=== PATIENT | male | born 1995 | race Two or more races ===

== ENCOUNTER 2021-07-02 20:14 | Emergency (ER) | payer MEDICAID ==
[~2021-07-02] VITALS: Ht 182.9 cm; Wt 83.9 kg
[2021-07-02 20:27] VITALS: BP 116/69
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
[2021-07-02 20:55] LABS: BILIRUBIN,URINE NEGATIVE (NEGATIVE); COLOR,URINE YELLOW (YELLOW); LEUKOCYTE ESTERASE ,URINE NEGATIVE (NEGATIVE); NITRITE, URINE NEGATIVE (NEGATIVE); UGLUCOSE NEGATIVE (NEGATIVE); UROBILINOGEN,URINE 0.2 EU/dL (0.2)
[2021-07-02 20:58] LABS: PROTEIN,URINE NEGATIVE (NEGATIVE)
--- NOTE | 2021-07-02 21:39 | NUR ---
us at bed side
== END 2021-07-02 22:07 | disposition home or self-care (01) ==
LOC: ER 20:18
DX: S30.22XA Contusion of scrotum and testes, initial encounter (principal); I86.1 Scrotal varices; W21.02XA Struck by soccer ball, initial encounter; Y93.66 Activity, soccer; Y92.322 Soccer field as the place of occurrence of the external cause; Y99.8 Other external cause status
CPT/HCPCS: 76870-TC

== ENCOUNTER 2021-08-17 16:13 | Emergency (ER) | payer MEDICAID ==
[~2021-08-17] VITALS: Ht 182.9 cm; Wt 83.9 kg
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
--- NOTE | 2021-08-17 17:33 | NUR ---
urine collected and sent
--- NOTE | 2021-08-17 17:55 | NUR ---
Patient discharged to home in stable condition. Written and verbal after care instructions given. Patient verbalizes understanding of instruction.
[2021-08-17 17:57] LABS: BILIRUBIN,URINE NEGATIVE (NEGATIVE); COLOR,URINE YELLOW (YELLOW); LEUKOCYTE ESTERASE ,URINE NEGATIVE (NEGATIVE); NITRITE, URINE NEGATIVE (NEGATIVE); PH,URINE 7.5 (5.0-8.0); PROTEIN,URINE NEGATIVE (NEGATIVE); UGLUCOSE NEGATIVE (NEGATIVE); UROBILINOGEN,URINE 0.2 EU/dL (0.2)
[2021-08-17 18:21] VITALS: BP 129/61
[2021-08-17 18:22] LABS: BACTERIA,URINE None seen /HPF (None Seen); RBC,URINE 0-2 /HPF (0-2); SQUAMOUS EPITHELIAL CELL,UR 0-2 /HPF (None Seen); URINE AMORPHOUS PHOSPHATES Moderate /HPF (None Seen); WBC,URINE 0-2 /HPF (0-3)
== END 2021-08-17 18:24 | disposition home or self-care (01) ==
LOC: ER 16:17
DX: I86.1 Scrotal varices (principal); Z60.2 Problems related to living alone
CPT/HCPCS: 76770-TC; 76870-TC; 81001